=== PATIENT | female | born 1945 | race Caucasian/White ===

== ENCOUNTER 2022-11-25 08:28 | Emergency (ER) | payer MEDICARE, OTHER, SELFPAY ==
[2022-11-25 08:40] VITALS: BP 192/84; PULSE 76; RESP 19; TEMP 36.2; O2SAT 96; BMI 31.1
--- NOTE | 2022-11-25 10:29 | ED_ITS ---
HPI - Skin/Abscess/Foreign Bdy General Chief complaint: Skin/Abscess/Foreign Body Stated complaint: right leg painful rash, tingling on foot Time Seen by Provider: 11/25/22 10:19 History of Present Illness HPI narrative: Patient is a 77-year-old female presents today with rash on the back of her leg for about 1 week. She describes it as very painful and blistering like. She said she was previously sick with ear infection upper respiratory like symptoms. Now she is not had any fever chills abdominal pain nausea vomiting chest pain or shortness of breath. But has quite a bit of pain in the back of her leg. She denies pain before the rash she says the pain only appeared during the rash. The rash is not getting any better. Related Data Previous Rx's Medication Instructions Recorded acyclovir 800 mg tablet 800 mg PO 5XD #35 tabs 11/25/22 hydrocodone 5 mg-acetaminophen 325 1 tab PO Q6H PRN pain #20 tabs 11/25/22 mg tablet Allergies Allergy/AdvReac Type Severity Reaction Status Date / Time No Known Drug Allergies Allergy Verified 11/25/22 10:46 Review of Systems Review of Systems ROS Unobtainable: All systems reviewed & are unremarkable except as noted in HPI and below Patient History Social History Smoking Status: Former smoker Exam Initial Vital Signs Initial Vital Signs: Vital Signs Temperature 97.1 F L 11/25/22 08:40 Pulse Rate 76 11/25/22 08:40 Respiratory Rate 19 11/25/22 08:40 Blood Pressure 192/84 H 11/25/22 08:40 Pulse Oximetry 96 11/25/22 08:40 Oxygen Delivery Method 11/25/22 08:40 GENERAL: Alert pleasant 77-year-old female and in no acute distress. HEENT: Head atraumatic,EOMI, pupils reactive, CARDIOVASCULAR: Regular rate and rhythm without murmurs, rubs or gallops. RESPIRATORY: Breath sounds equal bilaterally, no wheezes rales or rhonchi. ABDOMEN: Soft, nontender. Normoactive bowel sounds all 4 quadrants. No guarding or rebound. EXTREMITIES: Normal range of motion, no clubbing or edema. Neurovascularly intact NEUROLOGICAL: Alert and oriented x4. SKIN: Vesicular erythematous like rash posterior right leg all way up into the buttock. Does not extend onto the Course Vital Signs Vital signs: Vital Signs - 8 hr 11/25/22 08:40 11/25/22 10:54 Temperature 97.1 F L Pulse Rate 76 72 Respiratory Rate 19 18 Blood Pressure 192/84 H 196/53 H Pulse Oximetry 96 95 Oxygen Delivery Method Room Air Room Air MDM - Skin/Abscess/Foreign Bdy MDM Narrative Medical decision making narrative: Alert pleasant 77-year-old female presents today with rash ongoing for 1 week. It appears to be shingles. She did not have pain prior to the rash but she does have a vesicular like rash in 1 dermatome only. She is out of the window for prednisone will start her on pain medications and antivirals. At this time there is no need for any further workup Discharge Plan Departure Patient Disposition: Home Clinical Impression: Shingles rash Instructions: DI for Shingles Activity Restrictions/Additional Instructions: *You have been diagnosed with shingles *What to do: At this time you likely have shingles. This can take a couple weeks to fully resolve. *Continue to take medications as directed--> [facility] in [place] Acyclovir take 5 times a day for 7 days [place] 1 tablet every 6 hours if needed for severe pain *Follow up with your primary care provider in 2-3 days or call [phone] *Return to ER if you should have increasing pain worsening redness fever or any new, worsening or concerning symptoms CONTROLLED SUBSTANCE DISCHARGE (Narcotoic/benzodiazepine/Flexeril/Phenergan) 1. You have been prescribed narcotic medications, it does have acetaminophen/Tylenol/paracetamol in it, DO NOT TAKE MORE THAN 4,00mg in 24 hours of Tylenol. TRAMADOL DOES NOT CONTAIN TYLENOL 2. Please understand that we cannot provide further refills of narcotics, benzodiazepines or controlled substances through the ED and her pain management will need to be through your provider. 3. While on these medications you cannot drive or operate heavy machinery. 4. You cannot sign legal documents or perform any duties such as this. 5. As long as you're taking opiate pain medications he should also be taking a stool softener such as Colace, Dulcolax, MiraLAX or prune juice, to help avoid constipation. Prescriptions: New acyclovir 800 mg tablet 800 mg PO 5XD Qty: 35 0RF Rx Instructions: space evenly during waking hours hydrocodone-acetaminophen 5-325 mg tablet 1 tab PO Q6H PRN (Reason: pain) Qty: 20 0RF
[2022-11-25 10:54] VITALS: BP 196/53; PULSE 72; RESP 18; O2SAT 95
== END 2022-11-25 11:05 | disposition home or self-care (01) ==
PROVIDERS: Emergency Provider Emergency Medicine
DX: B02.9 Zoster without complications (principal)
CPT/HCPCS: 99281